=== PATIENT | male | born 1940 | race Caucasian/White ===

== ENCOUNTER 2023-02-13 10:35 | Emergency (ER) | payer BC ==
[~2023-02-13] VITALS: Ht 179.1 cm; Wt 84.8 kg
[2023-02-13 11:14] LABS: BASOPHILS % (AUTO) 0.2 % (0-1); EOSINOPHILS # (AUTO) 0.2 X10'3 (0-0.9); EOSINOPHILS % (AUTO) 2.3 % (0-6); HEMOGLOBIN 14.3 g/dl (14.0-17.9); LYMPHOCYTES # (AUTO) 1.8 X10'3 (1.1-4.8); LYMPHOCYTES % (AUTO) 17.5 % (21-51); MEAN CORPUSCULAR HEMOGLOBIN 32.1 PG (27.0-31.0); MEAN CORPUSCULAR HGB CONC 34.2 g/dL (33.0-36.5); MEAN CORPUSCULAR VOLUME 93.9 FL (78-98); MEAN PLATELET VOLUME 7.3 FL (7.4-10.4); MONOCYTES # (AUTO) 0.8 X10'3 (0-0.9); MONOCYTES % (AUTO) 7.4 % (2-12); NEUTROPHILS # (AUTO) 7.4 X10'3 (1.8-7.7); NEUTROPHILS % (AUTO) 72.6 % (42-75); PLATELET COUNT 286 X10'3 (140-440); RED BLOOD COUNT 4.47 X10'6 (4.70-6.10); RED CELL DISTRIBUTION WIDTH 13.7 % (11.5-14.5); WHITE BLOOD COUNT 10.2 X10'3 (4.5-11.0)
[2023-02-13 11:44] VITALS: TEMP 97.8
[2023-02-13 11:44] LABS: ALANINE AMINOTRANSFERASE 29 U/L (12-78); ALBUMIN 3.4 G/DL (3.4-5.0); ALBUMIN/GLOBULIN RATIO 0.7 (1.1-1.5); ALKALINE PHOSPHATASE 66 IU/L (46-116); ANION GAP 8 (8-16); ASPARTATE AMINO TRANSFERASE 21 U/L (10-37); BILIRUBIN,TOTAL 0.8 MG/DL (0.1-1.0); BLOOD UREA NITROGEN 26 MG/DL (7-18); BUN/CREATININE RATIO 16.6 (10.0-20.0); CALCIUM 8.9 MG/DL (8.5-10.1); CHLORIDE 104 MMOL/L (99-107); CREATININE 1.57 MG/DL (0.60-1.10); GLUCOSE 176 MG/DL (70-104); POTASSIUM 3.7 MMOL/L (3.5-5.1); SODIUM 140 MMOL/L (135-145); TOTAL CARBON DIOXIDE 27.7 MMOL/L (24-32); TOTAL PROTEIN 8.2 G/DL (6.4-8.2); eCRCL 39 ML/MIN; eGFR 43 ML/MIN
[2023-02-13 11:48] LABS: PRO BRAIN NATRIURETIC PEPTIDE 487 PG/ML (0-450)
[2023-02-13] MEDS ORDERED: AMLO2.5T2 PO (17:33)
[2023-02-13] MEDS ORDERED: GLIP5TAB23 PO (17:33)
[2023-02-13] MEDS ORDERED: TRAZ-251 PO ×2 (17:35→17:42)
[2023-02-13] MEDS ORDERED: BUSP10TA11 PO ×2 (17:36→17:42)
[2023-02-13] MEDS ORDERED: AZIT-164 PO (17:42)
[2023-02-13] MEDS ORDERED: azithromycin 250mg tablet PO ONE (17:45)
[2023-02-13 17:58] VITALS: BP 167/87; PULSE 99; RESP 18; O2SAT 98
== END 2023-02-13 18:02 | disposition home or self-care (01) ==
LOC: ER 10:37
DX: J40 Bronchitis, not specified as acute or chronic (principal)
CPT/HCPCS: 36415; 71045; 80053; 83880; 84484; 85025; 93005; 99285